=== PATIENT | female | born 1975 | race Caucasian/White ===

== ENCOUNTER 2016-12-12 00:45 | Emergency (ER) | payer BC ==
[~2016-12-12] VITALS: Ht 160 cm; Wt 113.4 kg
[2016-12-12 00:55] VITALS: BP 156/80
[2016-12-12] MEDS ORDERED: CLIN300C86 PO (01:31)
--- NOTE | 2016-12-12 01:31 | PHYS DOC ---
Past Medical History Past Medical History: No Pertinent History Past Surgical History: Alcohol Use: Occasionally Drug Use: None Adult General Chief Complaint Chief Complaint: EARACHE/EAR PAIN HPI HPI This a 41-year-old female who states she felt a popping sensation in her right ear that awoke her from sleep. She states she's had some ear pain for the last few days. She also claims she's had some mild cough and congestion. She states she can't hear out of both ears. She has not yet taken any thing other than Aleve for her symptoms. She denies any fever or chills. She denies any chest pain or shortness of breath. Review of Systems Review of Systems Constitutional: Denies fever or chills [] Eyes: Denies change in visual acuity, redness, or eye pain [] HENT: Denies nasal congestion or sore throat [] Respiratory: Denies cough or shortness of breath [] Cardiovascular: No additional information not addressed in HPI [] GI: Denies abdominal pain, nausea, vomiting, bloody stools or diarrhea [] : Denies dysuria or hematuria [] Musculoskeletal: Denies back pain or joint pain [] Integument: Denies rash or skin lesions [] Neurologic: Denies headache, focal weakness or sensory changes [] Endocrine: Denies polyuria or polydipsia [] Allergies Allergies Allergies Coded Allergies Type Severity Reaction Last Updated Verified Penicillins Allergy Intermediate 06/12/14 No Physical Exam Physical Exam Constitutional: Well developed, well nourished, no acute distress, non-toxic appearance. [] HENT: Normocephalic, atraumatic, bilateral external ears normal, oropharynx moist, no oral exudates, nose normal, there is some fluid and dullness to the left TM. [] Eyes: PERRLA, EOMI, conjunctiva normal, no discharge. [] Neck: Normal range of motion, no tenderness, supple, no stridor. [] Cardiovascular:Heart rate regular rhythm, no murmur [] Lungs & Thorax: Bilateral breath sounds clear to auscultation [] Abdomen: Bowel sounds normal, soft, no tenderness, no masses, no pulsatile masses. [] Skin: Warm, dry, no erythema, no rash. [] Back: No tenderness, no CVA tenderness. [] Extremities: No tenderness, no cyanosis, no clubbing, ROM intact, no edema. [] Neurologic: Alert and oriented X 3, normal motor function, normal sensory function, no focal deficits noted. [] Psychologic: Affect normal, judgement normal, mood normal. [] Current Patient Data Vital Signs Vital Signs Date Time Temp Pulse Resp B/P Pulse Ox O2 Delivery O2 Flow Rate FiO2 12/12/16 00:55 98.2 102 20 99 Room Air 98.2 EKG EKG [] Radiology/Procedures Radiology/Procedures [] Course & Med Decision Making Course & Med Decision Making Pertinent Labs and Imaging studies reviewed. (See chart for details) This 41-year-old female with some mild fluid and dullness to the right TM will be prescribed a course of clindamycin for 10 days and she will follow closely with her primary care doctor. There is no indication at this time to do any other laboratory testing. She was discharged without incident. Dragon Disclaimer Dragon Disclaimer This electronic medical record was generated, in whole or in part, using a voice recognition dictation system. Departure Departure Impression: Primary Impression: Otitis media Disposition: 01 HOME, SELF-CARE Admitting Physician: Other Condition: STABLE Referrals: NO PCP (PCP) Patient Instructions: Otitis Media with Effusion Additional Instructions: Please take your antibiotic as prescribed. Return to the ER if you develop any worsening of your symptoms. Follow up with your primary doctor in the next 2-3 days for your symptoms. Scripts Clindamycin Hcl 300 Mg [id number] Mg PO TID #30 CAP Prov:RUBÉN CHAVEZ DO 12/12/16 RUBÉN CHAVEZ DO Dec 12, 2016 01:31
== END 2016-12-12 01:35 | disposition home or self-care (01) ==
LOC: ER 00:45
DX: H66.91 Otitis media, unspecified, right ear (principal); Z88.0 Allergy status to penicillin
CPT/HCPCS: 99283